=== PATIENT | female | born 1995 | race Caucasian/White ===

== ENCOUNTER → 2020-06-09 | Outpatient (CLI) | payer OTHER | LOC: OPSV 10:05 | DX: E86.0 Dehydration (principal) | CPT/HCPCS: 96360; J7030 ==

== ENCOUNTER → 2020-10-25 | Outpatient (CLI) | payer SELFPAY | LOC: KOH-I 10:26 | DX: R19.7 Diarrhea, unspecified (principal); R11.10 Vomiting, unspecified; N13.30 Unspecified hydronephrosis | CPT/HCPCS: 76705 ==